=== PATIENT | female | born 1950 | race Caucasian/White ===

== ENCOUNTER → 2018-02-05 10:13 | Outpatient (CLI) | payer MEDICARE, OTHER, SELFPAY ==
--- NOTE | 2018-02-05 | DI.MG.S_ITS ---
BILATERAL DIGITAL SCREENING MAMMOGRAM 3D/2D WITH CAD: 02/05/2018 CLINICAL: Routine screening. Comparison is made to exams dated: 12/02/2013 mammogram - [facility], 01/09/2017 mammogram - [facility], and 04/14/2013 mammogram - [facility]. The tissue of both breasts is heterogeneously dense. This may lower the sensitivity of mammography. Current study was also evaluated with a Computer Aided Detection (CAD) system. No significant masses, calcifications, or other findings are seen in either breast. There has been no significant interval change. IMPRESSION: NEGATIVE There is no mammographic evidence of malignancy. A 1 year screening mammogram is recommended. This exam was interpreted at Station ID: [id number]. NOTE: For mammograms, a report in lay terms will be sent to the patient. Approximately 15% of breast malignancies will not be visualized mammographically. In the management of a palpable breast mass, a negative mammogram must not discourage biopsy of a clinically suspicious lesion. Electronically Signed By: Bimal jha/mago:02/05/2018 20:08:52 letter sent: Normal Exam ACR BI-RADS Category 1: Negative 3341F
== END ==
PROVIDERS: Family Provider Internal Medicine; PCP Internal Medicine; Visit Provider Internal Medicine
DX: Z12.31 Encounter for screening mammogram for malignant neoplasm of breast (principal)
CPT/HCPCS: 77063; 77067

== ENCOUNTER → 2018-04-08 10:36 | Outpatient (CLI) | payer MEDICARE, OTHER, SELFPAY ==
--- NOTE | 2018-04-08 | DI.ECHO.S_ITS ---
[facility] +---------+ [facility] +---------+ : : [address] : [address] : : : : [id number] : : : : Phone: [phone] +---------+ Echocardiogram Report + + :Name: MELVINA AMBROSE Study Date: 04/08/2018 Height: 67 in : :[facility] Weight: 123 lb : : Gender: Female BSA: 1.6 m2 : :: 1950 Age: 67 yrs BP: 114/78 mmHg: :Reason For Study: Mitral Valve- Prolapse : :Ordering Physician: Philip : :Jody Performed By: Brisa Pratt : :Referring: Rojas Dewey : + + Interpretation Summary 1) Normal left ventricular size and thickness with low normal systolic function (EF 50-55%). 2) Grossly normal right ventricular size and function. 3) There is severe bileaflet mitral valve prolapse. 4) Probably moderate posteriorly directed mitral regurgitation present. The regurgitation jet doesn't appear to be holosystolic, making severe mitral regurgitation less likely. 5) There is mild to moderate tricuspid regurgitation. 6) The right ventricular systolic pressure is estimated to be at least 29 mmHg based on an estimated right atrial pressure of 3 mm Hg. 7) Compared to the Echo done 02/07/2017, no significant change. Procedure: A two-dimensional transthoracic echocardiogram with color flow and Doppler was performed. The study quality was technically adequate. Comparison is made with the echocardiogram of 02-07-17. The heart rate ranged between 87-106 bpm during the study. Left Ventricle: The left ventricle is normal in size. There is normal left ventricular wall thickness. The ejection fraction is estimated to be 50-55%. Right Ventricle: The right ventricle grossly appears normal in size with probable normal systolic function. Atria: The left atrium is severely dilated. Right atrial size is normal. The interatrial septum is intact with no evidence for an atrial septal defect. Mitral Valve: There is prolapse of the anterior mitral valve leaflet. There is prolapse of the posterior mitral valve leaflet(s). There is severe mitral valve prolapse. There is moderate mitral regurgitation. Aortic Valve: The aortic valve is trileaflet. The aortic valve opens well. There is trace aortic regurgitation. Tricuspid Valve: The tricuspid valve leaflets are thin and pliable. There is mild to moderate tricuspid regurgitation. The right ventricular systolic pressure is estimated to be at least 29 mmHg based on an estimated right atrial pressure of 3 mm Hg. Pulmonic Valve: The pulmonic valve is normal in structure and function. There is trace pulmonic regurgitation. Great Vessels: The aortic root is normal size. The dimensions of the ascending aorta are normal. The IVC is of normal diameter and collapses greater than 50% with a sniff. This suggests a low right atrial pressure of 3 mm Hg. Pericardium/ Pleura There is no pericardial effusion. There is no pleural effusion. MMode/2D Measurements & Calculations LVIDd: 4.5 cm Ao root diam: 3.2 cm LVIDs: 3.6 cm Aortic Jxn: 2.5 cm FS: 20.4 % asc Aorta Diam: 2.7 cm EPSS: 0.30 cm Ao Arch Diam (Prox Trans): 2.6 cm IVSd: 0.85 cm LVPWd: 0.72 cm LV grullon. diameter/BSA (cm/m^2): 2.7 LV sys. diameter/BSA (cm/m^2): 2.2 LA dimension: 3.5 cm RA long axis: 4.8 cm LA A2 area: 23.6 cm2 RA area: 17.7 cm2 LA A4 area: 22.3 cm2 RA vol: 55.7 ml LA length (vol): 5.3 cm RA : 33.8 ml/m2 LA vol: 84.3 ml IVC diam: 1.7 cm LA vol index: 51.2 ml/m2 RVDd major: 5.5 cm RVD1 (basal): 2.9 cm RVD2 (mid): 2.4 cm Doppler Measurements & Calculations LVOT Max Jair: 84.7 cm/sec MV E max jair: 119.8 cm/sec LV V1 max P.9 mmHg MV A max jair: 50.2 cm/sec LV V1 VTI: 17.0 cm MV E/A: 2.4 Med Peak E' Jair: 8.3 cm/sec E/E' med: 14.4 Lat Peak E' Jair: 8.2 cm/sec E/E' lat: 14.6 E/e' average: 14.5 MV dec time: 0.18 sec MV P1/2t: 54.9 msec TR max jair: 256.2 cm/sec MV P1/2t max jair: 119.1 cm/sec TR max P.2 mmHg MVA(P1/2t): 4.0 cm2 PA V2 max: 55.1 cm/sec PA V2 mean: 29.4 cm/sec PA mean P.47 mmHg Reading Physician:01:44 PM
== END ==
PROVIDERS: PCP Internal Medicine; Visit Provider Internal Medicine Cardiovascular Disease
DX: I08.1 Rheumatic disorders of both mitral and tricuspid valves (principal)
CPT/HCPCS: 93306

== ENCOUNTER → 2019-04-15 13:29 | Outpatient (CLI) | payer MEDICARE, OTHER, SELFPAY ==
--- NOTE | 2019-04-15 | DI.ECHO.S_ITS ---
[place] +---------+ Hospital +---------+ : : [address] : [address] : : : : [id number] : : : : Phone: [phone] : : [phone] +---------+ Echocardiogram Report + + :Name: MELVINA AMBROSE Study Date: 04/15/2019 Height: 66 in : :[facility] Weight: 120 lb : : Gender: Female BSA: 1.6 m2 : :: 1950 Age: 68 yrs BP: 122/82 mmHg: :Reason For Study: MITRAL VALVE PROLAPSE : : Performed By: [facility] Staff : :Referring: JONATHAN ANDREWS : + + Interpretation Summary -There is significant bileaflet prolapse which is more prominent in the posterior leaflet. 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 -Mild to moderate midsystolic mitral regurgitation. -LVESD 3.2 cm. -Left ventricular ejection fraction is estimated to be 65% by biplane MOD. -The right ventricle is normal in size and function. -The right ventricular systolic pressure is estimated to be at least 29 mmHg based on an estimated right atrial pressure of 3 mm Hg. -A PFO is suspected on some views. -The left atrium is moderately dilated. -Overall this findings are similar to the prior echo. The LV systolic function appears slightly more vigorous. Procedure: A two-dimensional transthoracic echocardiogram with color flow and Doppler was performed. The study quality was technically adequate. Prior echo performed on 04/08/18. The patient was in normal sinus rhythm during the exam. Left Ventricle: The left ventricle is normal in size. There is normal left ventricular wall thickness. The ejection fraction is estimated to be 60-65%. Left ventricular ejection fraction is estimated to be 65% by biplane MOD. The left ventricular ejection fraction is normal. Left ventricular wall motion is normal. Diastolic function could not be accurately assessed due to atrial fibrillation. Right Ventricle: The right ventricle is normal in size and function. TAPSE 2 cm. Atria: The left atrium is moderately dilated. The right atrium is borderline dilated. Mitral Valve: There is prolapse of the anterior mitral valve leaflet. There is moderate mitral regurgitation. The mitral regurgitant jet is posteriorly directed, which is consistent with anterior leaflet pathology. Aortic Valve: The aortic valve is trileaflet. The aortic valve opens well. No aortic regurgitation is present. Tricuspid Valve: The tricuspid valve is not well visualized, but is grossly normal. There is mild tricuspid regurgitation. The right ventricular systolic pressure is estimated to be at least 29 mmHg based on an estimated right atrial pressure of 3 mm Hg. Pulmonic Valve: The pulmonic valve is normal in structure and function. There is trace pulmonic regurgitation. Great Vessels: The aortic root is normal size. The dimensions of the ascending aorta are normal. The pulmonary artery is normal size. The IVC is of normal diameter and collapses greater than 50% with a sniff. This suggests a low right atrial pressure of 3 mm Hg. Pericardium/ Pleura There is no pericardial effusion. There is no pleural effusion. MMode/2D Measurements & Calculations LVIDd: 4.5 cm LVOT diam: 2.2 cm LVIDs: 3.0 cm Ao root diam: 2.9 cm FS: 33.8 % Aortic Jxn: 2.5 cm EPSS: 0.51 cm IVSd: 0.83 cm LVPWd: 1.2 cm LV grullon. diameter/BSA (cm/m^2): 2.8 LV sys. diameter/BSA (cm/m^2): 1.9 LA A2 area: 18.8 cm2 RA long axis: 4.9 cm LA A4 area: 19.7 cm2 RA area: 16.9 cm2 LA length (vol): 4.3 cm RA vol: 50.0 ml LA vol: 72.5 ml RA : 31.0 ml/m2 LA vol index: 45.0 ml/m2 TAPSE: 1.8 cm LV EDA_phl: 19.0 cm2 Doppler Measurements & Calculations Ao V2 max: 97.4 cm/sec LVOT Max Jair: 61.3 cm/sec Ao V2 mean: 62.4 cm/sec LV V1 max P.5 mmHg Ao max P.8 mmHg LV V1 VTI: 11.8 cm Ao mean P.8 mmHg NICK(I,D): 2.4 cm2 Ao V2 VTI: 18.7 cm NICK(V,D): 2.3 cm2 sev ratio: 0.63 NICK indexed to BSA (cm^2/m^2): 1.5 MV E max jair: 0.23 cm/sec TR max jair: 245.7 cm/sec TR max P.8 mmHg PA V2 max: 47.2 cm/sec PA V2 mean: 35.0 cm/sec PA mean P.53 mmHg PA Accel Time: 0.12 sec SV(LVOT): 44.0 ml Electronically signed by: Jonathan Andrews M.D. on Reading Physician:04/15/2019 09:49 PM
== END ==
PROVIDERS: PCP Internal Medicine; Visit Provider Hospitalist
DX: I08.1 Rheumatic disorders of both mitral and tricuspid valves (principal)
CPT/HCPCS: 93306

== ENCOUNTER → 2020-05-19 07:55 | Outpatient (CLI) | payer MEDICARE, OTHER, SELFPAY ==
--- NOTE | 2020-05-19 08:03 | DI.ECHO.S_ITS ---
[facility] +---------+ Hospital +---------+ : : [address] : : : : [id number] : : : : Phone: [phone] : [phone] +---------+ Echocardiogram Report + + :Name: MELVINA AMBROSE Study Date: 05/19/2020 Height: 66 in : [id number] : : Gender: Female BSA: 1.6 m2 : :: 1950 Age: 69 yrs BP: 107/74 mmHg: :Reason For Study: Mitral valve insufficiency : : Performed By: Rosalee Childress : :Referring: JONATHAN ANDREWS : + + Interpretation Summary The left ventricle is normal in size and wall thickness.LVIDd: 5.1 cm LVIDs: 3.4 cm The ejection fraction is estimated to be 55-60%. No significant change in LVEF from the previous study. The right ventricle is normal in size and function. The mitral valve leaflets appear myxomatous. There is prolapse of the anterior mitral valve leaflet. There is prolapse of the posterior mitral valve leaflet(s). There is moderate mitral regurgitation. There is an eccentric jet of mitral regurgitation that is directed posteriorly. Compared to the prior echo study, there has been no change in the severity of mitral regurgitation. There is mild to moderate tricuspid regurgitation. Compared to the prior echo exam, there has been no change in TR severity. The right ventricular systolic pressure is estimated to be at least 31 mmHg based on an estimated right atrial pressure of 3 mm Hg. The left atrium is severely dilated. The left atrium has mildly increased in size since the prior echo exam. Rhythm appears to be atrial flutter/A. fib with controlled ventricular rate (New). Procedure: A two-dimensional transthoracic echocardiogram with color flow and Doppler was performed. The study quality was technically adequate. Comparison is made with the echocardiogram of 04/15/2019. Rhythm appears to be atrial flutter/A. fib with controlled ventricular rate. Left Ventricle: The left ventricle is normal in size and wall thickness. There is no thrombus. The ejection fraction is estimated to be 55-60%. Septal motion is consistent with conduction abnormality. E/E' med: 13.0. Right Ventricle: The right ventricle is normal in size and function. Atria: The left atrium is severely dilated. The left atrium has mildly increased in size since the prior echo exam. The right atrium is moderately dilated. There is no Doppler evidence for an interatrial shunt. Mitral Valve: The mitral valve leaflets appear myxomatous. There is moderate mitral valve prolapse. There is prolapse of the anterior mitral valve leaflet. There is prolapse of the posterior mitral valve leaflet(s). There is moderate mitral regurgitation. There is an eccentric jet of mitral regurgitation that is directed posteriorly. Compared to the prior echo study, there has been no change in the severity of mitral regurgitation. Aortic Valve: The aortic valve is trileaflet. The aortic valve opens well. There is no aortic valve stenosis. There is trace aortic regurgitation. Tricuspid Valve: The tricuspid valve is normal in structure and function. There is mild to moderate tricuspid regurgitation. The right ventricular systolic pressure is estimated to be at least 31 mmHg based on an estimated right atrial pressure of 3 mm Hg. Compared to the prior echo exam, there has been no change in TR severity. Pulmonic Valve: The pulmonic valve leaflets are thin and pliable; valve motion is normal. There is trace pulmonic regurgitation. Great Vessels: The aortic root is normal size. The ascending aorta is normal in size. The pulmonary artery is normal size. The IVC is of normal diameter and collapses greater than 50% with a sniff. This suggests a low right atrial pressure of 3 mm Hg. Pericardium/ Pleura There is no pericardial effusion. There is an anterior echo-free space consistent with a fat pad. MMode/2D Measurements & Calculations LVIDd: 5.1 cm LVOT diam: 2.3 cm LVIDs: 3.4 cm Ao root diam: 3.3 cm FS: 34.1 % asc Aorta Diam: 2.6 cm IVSd: 0.55 cm Ao Arch Diam (Prox Trans): 2.4 cm LVPWd: 0.43 cm LV grullon. diameter/BSA (cm/m^2): 3.1 LV sys. diameter/BSA (cm/m^2): 2.1 LA A2 area: 27.3 cm2 RA long axis: 6.1 cm LA A4 area: 28.3 cm2 RA area: 22.2 cm2 LA length (vol): 6.0 cm RA vol: 68.5 ml LA vol: 109.8 ml RA : 42.0 ml/m2 LA vol index: 67.4 ml/m2 IVC diam: 1.2 cm RVD1 (basal): 2.8 cm TAPSE: 1.9 cm Doppler Measurements & Calculations Ao V2 max: 97.8 cm/sec LVOT Max Jair: 60.7 cm/sec Ao V2 mean: 65.9 cm/sec LV V1 max P.5 mmHg Ao max P.8 mmHg LV V1 VTI: 10.5 cm Ao mean P.9 mmHg NICK(I,D): 2.5 cm2 Ao V2 VTI: 17.2 cm NICK(V,D): 2.5 cm2 sev ratio: 0.61 NICK indexed to BSA (cm^2/m^2): 1.5 MV E max jair: 128.8 cm/sec TR max jair: 266.0 cm/sec MV A max jair: 56.3 cm/sec TR max P.3 mmHg MV E/A: 2.3 PA V2 max: 50.0 cm/sec Med Peak E' Jair: 9.9 cm/sec PA V2 mean: 38.5 cm/sec E/E' med: 13.0 PA mean P.64 mmHg Lat Peak E' Jair: 10.2 cm/sec PA Accel Time: 0.12 sec E/E' lat: 12.6 E/e' average: 12.8 MV P1/2t: 58.8 msec MVA(VTI): 1.4 cm2 MV V2 mean: 84.6 cm/sec MV P1/2t max jair: 128.8 cm/sec MV mean P.8 mmHg MVA(P1/2t): 3.7 cm2 MV V2 VTI: 30.5 cm SV(LVOT): 42.2 ml Reading Physician:02:30 PM
== END ==
PROVIDERS: PCP Internal Medicine; Referring Provider Hospitalist; Visit Provider Hospitalist
DX: I08.1 Rheumatic disorders of both mitral and tricuspid valves (principal)
CPT/HCPCS: 93306

== ENCOUNTER → 2020-08-23 09:28 | Outpatient (CLI) | payer MEDICARE, OTHER, SELFPAY ==
--- NOTE | 2020-08-23 10:27 | DI.CT.S_ITS ---
PROCEDURE: CT ABDOMEN PELVIS W CON INDICATIONS: Lower abdominal pain, unspecified TECHNIQUE: After the administration of oral and intravenous contrast, 5 mm thick sections acquired from the diaphragms to the symphysis. 5 mm thick coronal and sagittal reformats were performed. For radiation dose reduction, the following was used: automated exposure control, adjustment of mA and/or kV according to patient size. COMPARISON: None. FINDINGS: Image quality: Excellent. ABDOMEN: Lung bases: Lung bases are clear. Heart size is normal. Solid organs: Liver is normal in size and enhancement. Gallbladder appears present, partially contracted.. Biliary system is non-dilated. Pancreas enhances normally. Spleen is normal in size and enhancement. No adrenal nodules. Kidneys are normal in size and enhancement, without hydronephrosis. Peritoneum and bowel: Stomach, small bowel, and colon loops are normal in caliber and wall thickness. No free fluid or air. Nodes and vessels: No retroperitoneal or mesenteric adenopathy. Aorta and inferior vena cava are normal in caliber. Miscellaneous: No ventral hernias. PELVIS: Genitourinary: Bladder wall thickness is normal. Miscellaneous: No inguinal hernias or adenopathy. Note is made of extensive diverticulosis involving the sigmoid colon, and also a mild degree of edema in the pericolonic fat of the sigmoid mesocolon at the middle 3rd of the sigmoid coarse, consistent with mild acute diverticulitis, without peridiverticular abscess. Bones: No suspicious bony lesions. No vertebral body compression fractures. IMPRESSION: Mild acute diverticulitis at the sigmoid colon without peridiverticular abscess. Additional extensive sigmoid diverticulosis elsewhere. Throughout the abdomen and pelvis more superiorly no acute disease is found. Dictated by: Simon Almanza M.D. on 08/23/2020 at 11:35 Approved by: Simon Almanza M.D. on 08/23/2020 at 11:37
== END ==
PROVIDERS: PCP Internal Medicine; Referring Provider Internal Medicine; Visit Provider Internal Medicine
DX: K57.32 Diverticulitis of large intestine without perforation or abscess without bleeding (principal); I48.91 Unspecified atrial fibrillation; R00.0 Tachycardia, unspecified
CPT/HCPCS: 74177; Q9967

== ENCOUNTER → 2020-09-29 15:06 | Outpatient (CLI) | payer MEDICARE, OTHER, SELFPAY ==
--- NOTE | 2020-09-29 15:08 | DI.MG.S_ITS ---
BILATERAL DIGITAL SCREENING MAMMOGRAM 3D/2D WITH CAD: 09/29/2020 CLINICAL: Routine screening. Comparison is made to exams dated: 02/05/2018 mammogram, 01/09/2017 mammogram - [facility], and 12/02/2013 mammogram - [facility]. The tissue of both breasts is heterogeneously dense. This may lower the sensitivity of mammography. Current study was also evaluated with a Computer Aided Detection (CAD) system. No significant masses, calcifications, or other findings are seen in either breast. There has been no significant interval change. IMPRESSION: NEGATIVE There is no mammographic evidence of malignancy. A 1 year screening mammogram is recommended. This exam was interpreted at Station ID: [id number]. NOTE: For mammograms, a report in lay terms will be sent to the patient. Approximately 15% of breast malignancies will not be visualized mammographically. In the management of a palpable breast mass, a negative mammogram must not discourage biopsy of a clinically suspicious lesion. Electronically Signed By: Morteza Stauffer M.D., jr/mago:09/29/2020 16:34:16 letter sent: Normal Exam ACR BI-RADS Category 1: Negative 3341F
== END ==
PROVIDERS: PCP Internal Medicine; Referring Provider Internal Medicine; Visit Provider Internal Medicine
DX: Z12.31 Encounter for screening mammogram for malignant neoplasm of breast (principal)
CPT/HCPCS: 77063; 77067

== ENCOUNTER → 2021-07-19 13:41 | Outpatient (CLI) | payer MEDICARE, OTHER, SELFPAY ==
--- NOTE | 2021-07-19 | DI.ECHO.S_ITS ---
[place] +---------+ Hospital +---------+ : : [address] : : : : [phone] : : : : Phone: [phone] : : [phone] +---------+ Echocardiogram Report + + :Name: MELVINA AMBROSE Study Date: 07/19/2021 Height: 66 in : :[facility] ReadingLocation: Weight: 120 lb : : Gender: Female BSA: 1.6 m2 : :: 1950 Age: 70 yrs BP: 130/88 mmHg: :Reason For Study: MITRAL INSUFFICIENCY : :Ordering Physician: JEREMIAH, : :VALERY Performed By: Bushra Villagomez : :Referring: VALERY DANIELS : + + Interpretation Summary The left ventricle is normal in size.LVIDd: 4.5 cm LVIDs: 2.9 cm The ejection fraction is estimated to be 55-60%. There has been no significant change in LVEF since the previous exam. The right ventricle is normal in size and function. The mitral valve leaflets appear myxomatous. There is prolapse of the anterior mitral valve leaflet. There is prolapse of the posterior mitral valve leaflet(s). There is moderate mitral regurgitation. The mitral regurgitant jet is eccentrically directed. The mitral regurgitant jet is anteriorly directed, which is consistent with posterior leaflet pathology. Compared to the prior echo study, there has been no change in the severity of mitral regurgitation. There is moderate tricuspid regurgitation. Previously mild to moderate TR. The right ventricular systolic pressure is estimated to be at least 30.4 mmHg based on an estimated right atrial pressure of 3 mm Hg. Procedure: A two-dimensional transthoracic echocardiogram with color flow and Doppler was performed. The study quality was technically adequate. Comparison is made with the echocardiogram of 05/19/2020. The patient was in atrial fibrillation with heart rates between 76-97 bpm during the exam. Left Ventricle: The left ventricle is normal in size. Left ventricular wall thickness is borderline increased. There is no thrombus. The ejection fraction is estimated to be 55-60%. There has been no significant change since the previous exam. There are no focal wall motion abnormalities. Diastolic function could not be accurately assessed due to atrial fibrillation. E/E' med: 12.9. Right Ventricle: The right ventricle is normal in size and function. Atria: The left atrium is severely dilated. The left atrium has remained unchanged in size since the prior echo exam. The right atrium is mildly dilated. There is no Doppler evidence for an interatrial shunt. The interatrial septum bows toward right atrium consistent with elevated left atrial pressure. Mitral Valve: The mitral valve leaflets appear myxomatous. There is prolapse of the anterior mitral valve leaflet. There is prolapse of the posterior mitral valve leaflet(s). There are multiple regurgitant jets present. The mitral regurgitant jet is eccentrically directed. There is moderate mitral regurgitation. The mitral regurgitant jet is anteriorly directed, which is consistent with posterior leaflet pathology. Compared to the prior echo study, there has been no change in the severity of mitral regurgitation. Aortic Valve: The aortic valve is trileaflet. The aortic valve opens well. There is no aortic valve stenosis. No aortic regurgitation is present. Tricuspid Valve: Tricuspid leaflets are thickened. There is moderate tricuspid regurgitation. Multiple regurgitant jets. The right ventricular systolic pressure is estimated to be at least 30.4 mmHg based on an estimated right atrial pressure of 3 mm Hg. Pulmonic Valve: The pulmonic valve is not well seen, but is grossly normal. There is mild pulmonic regurgitation. Great Vessels: The aortic root is normal size. The dimensions of the ascending aorta are normal. The IVC is of normal diameter and collapses greater than 50% with a sniff. This suggests a low right atrial pressure of 3 mm Hg. Pericardium/ Pleura There is no pericardial effusion. There is no pleural effusion. MMode/2D Measurements & Calculations LVIDd: 4.5 cm LVOT diam: 2.2 cm LVIDs: 2.9 cm Ao root diam: 3.0 cm FS: 36.0 % asc Aorta Diam: 2.5 cm IVSd: 0.64 cm Ao Arch Diam (Prox Trans): 2.2 cm LVPWd: 0.68 cm LV grullon. diameter/BSA (cm/m^2): 2.8 LV sys. diameter/BSA (cm/m^2): 1.8 LA A2 area: 29.0 cm2 RA long axis: 5.3 cm LA A4 area: 26.4 cm2 RA area: 14.9 cm2 LA length (vol): 5.9 cm RA vol: 35.1 ml LA vol: 110.9 ml RA : 21.8 ml/m2 LA vol index: 68.9 ml/m2 IVC diam: 1.7 cm RVD1 (basal): 3.0 cm RVD2 (mid): 2.8 cm TAPSE: 1.8 cm Doppler Measurements & Calculations Ao V2 max: 114.2 cm/sec LVOT Max Jair: 67.9 cm/sec Ao V2 mean: 76.0 cm/sec LV V1 max P.8 mmHg Ao max P.2 mmHg LV V1 VTI: 12.0 cm Ao mean P.7 mmHg NICK(I,D): 2.4 cm2 Ao V2 VTI: 19.4 cm NICK(V,D): 2.3 cm2 sev ratio: 0.62 NICK indexed to BSA (cm^2/m^2): 1.5 MV E max jair: 141.0 cm/sec TR max jair: 261.8 cm/sec MV A max jair: 2.9 cm/sec TR max P.4 mmHg MV E/A: 48.7 PA V2 max: 75.6 cm/sec Med Peak E' Jair: 11.0 cm/sec PA V2 mean: 50.8 cm/sec E/E' med: 12.9 PA mean P.2 mmHg Lat Peak E' Jair: 10.3 cm/sec PA pr(Accel): 27.6 mmHg E/E' lat: 13.7 E/e' average: 13.3 MV dec time: 0.20 sec SV(LVOT): 46.7 ml Reading Physician:05:08 PM
== END ==
PROVIDERS: PCP Internal Medicine; Referring Provider Internal Medicine Cardiovascular Disease; Visit Provider Internal Medicine Cardiovascular Disease
DX: I08.1 Rheumatic disorders of both mitral and tricuspid valves (principal)
CPT/HCPCS: 93306

== ENCOUNTER → 2021-10-24 11:13 | Outpatient (CLI) | payer MEDICARE, OTHER, SELFPAY ==
--- NOTE | 2021-10-24 | DI.MG.S_ITS ---
BILATERAL DIGITAL SCREENING MAMMOGRAM 3D/2D WITH CAD: 10/24/2021 CLINICAL: Routine screening. Comparison is made to exams dated: 09/29/2020 mammogram, 02/05/2018 mammogram, 01/09/2017 mammogram - [facility], and 12/02/2013 mammogram - [facility]. The tissue of both breasts is heterogeneously dense. This may lower the sensitivity of mammography. Current study was also evaluated with a Computer Aided Detection (CAD) system. No significant masses, calcifications, or other findings are seen in either breast. There has been no significant interval change. IMPRESSION: NEGATIVE There is no mammographic evidence of malignancy. A 1 year screening mammogram is recommended. This exam was interpreted at Station ID: [id number]. NOTE: For mammograms, a report in lay terms will be sent to the patient. Approximately 15% of breast malignancies will not be visualized mammographically. In the management of a palpable breast mass, a negative mammogram must not discourage biopsy of a clinically suspicious lesion. Electronically Signed By: Kentrell valdez/mago:10/24/2021 12:01:02 letter sent: Normal Exam ACR BI-RADS Category 1: Negative 3341F
== END ==
PROVIDERS: PCP Internal Medicine; Referring Provider Internal Medicine; Visit Provider Physician Assistant
DX: M85.89 Other specified disorders of bone density and structure, multiple sites (principal); Z12.31 Encounter for screening mammogram for malignant neoplasm of breast; Z78.0 Asymptomatic menopausal state; Z90.710 Acquired absence of both cervix and uterus
CPT/HCPCS: 77063; 77067; 77080

== ENCOUNTER → 2022-06-26 09:09 | Outpatient (CLI) | payer MEDICARE, OTHER, SELFPAY ==
--- NOTE | 2022-06-26 09:37 | DI.ECHO.S_ITS ---
Echocardiogram Report + + :Name: MELVINA AMBROSE :Reason For Study: MITRAL VALVE PROLAPSE : :Ordering Physician: HAM, : :JONATAN TORIBIO Performed By: Bushra Villagomez : :Referring: DONI WHITEHEAD : + + Interpretation Summary 1) Normal left ventricular size and thickness with low normal systolic function (EF 50-55%). 2) Normal right ventricular size and function. 3) Severely enlarged left atrium. 4) Bileaflet mitral valve prolapse present. 5) There is mid to late systolic moderate mitral regurgitation that is directed posteriorly. 6) There is mild to moderate tricuspid regurgitation. 7) The right ventricular systolic pressure is estimated to be at least 42 mmHg based on an estimated right atrial pressure of 8 mm Hg. 8) Compared to the Echo done 07/19/2021, LVEF has decreased slightly from 55- 60% to 50-55% and systolic pulmonary artery pressure has increased from 30mmHg to 42mmHg on this study. Procedure: A two-dimensional transthoracic echocardiogram with color flow and Doppler was performed. The study quality was technically good. Comparison is made with the echocardiogram of 07/19/2021. The patient was in atrial fibrillation with heart rates between 75-91 bpm during the exam. Left Ventricle: The left ventricle is normal in size and wall thickness. The ejection fraction is estimated to be 50-55%. There are no focal wall motion abnormalities. Diastolic function could not be accurately assessed due to atrial fibrillation. Right Ventricle: The right ventricle is normal in size and function. Atria: The left atrium is severely dilated. The right atrium is mildly dilated. There is no Doppler evidence for an interatrial shunt. The interatrial septum bows toward right atrium consistent with elevated left atrial pressure. Mitral Valve: The mitral leaflets appear thickened, hooded, and/or redundant, consistent with myxomatous degeneration. There is prolapse of the anterior mitral valve leaflet. There is prolapse of the posterior mitral valve leaflet(s). There is moderate mitral regurgitation. There are multiple regurgitant jets present. Aortic Valve: The aortic valve is trileaflet. The aortic valve opens well. There is no aortic valve stenosis. There is trace aortic regurgitation. Tricuspid Valve: Tricuspid leaflets are thickened. There is mild to moderate tricuspid regurgitation. Multiple jets. The right ventricular systolic pressure is estimated to be at least 42 mmHg based on an estimated right atrial pressure of 8 mm Hg. Pulmonic Valve: The pulmonic valve is not well seen, but is grossly normal. There is mild pulmonic regurgitation. Great Vessels: The aortic root is normal size. The dimensions of the ascending aorta are normal. The IVC is dilated (diameter is greater than 2.1 cm) yet it collapses greater than 50% with a sniff. This suggests a right atrial pressure of 8 mm Hg. Pericardium/ Pleura There is no pericardial effusion. There is no pleural effusion. MMode/2D Measurements & Calculations LVIDd: 4.6 cm LVOT diam: 2.2 cm LVIDs: 3.4 cm Ao root diam: 3.0 cm FS: 26.4 % asc Aorta Diam: 2.7 cm IVSd: 0.70 cm Ao Arch Diam (Prox Trans): 2.5 cm LVPWd: 0.86 cm LV grullon. diameter/BSA (cm/m^2): 2.9 LV sys. diameter/BSA (cm/m^2): 2.1 LA A2 area: 32.1 cm2 RA long axis: 6.2 cm LA A4 area: 28.2 cm2 RA area: 20.6 cm2 LA length (vol): 6.0 cm RA vol: 58.1 ml LA vol: 128.6 ml RA : 36.8 ml/m2 LA vol index: 81.4 ml/m2 IVC diam: 2.1 cm RVD1 (basal): 3.4 cm RVD2 (mid): 2.8 cm TAPSE: 1.7 cm Doppler Measurements & Calculations Ao V2 max: 106.6 cm/sec LVOT Max Jiar: 58.9 cm/sec Ao V2 mean: 72.1 cm/sec LV V1 max P.4 mmHg Ao max P.6 mmHg LV V1 VTI: 11.5 cm Ao mean P.3 mmHg NICK(I,D): 2.2 cm2 Ao V2 VTI: 19.5 cm NICK(V,D): 2.0 cm2 sev ratio: 0.59 NICK indexed to BSA (cm^2/m^2): 1.4 MV E max jair: 133.3 cm/sec TR max jair: 290.7 cm/sec MV A max jair: 1.9 cm/sec TR max P.8 mmHg MV E/A: 70.1 PA V2 max: 67.3 cm/sec Med Peak E' Jair: 10.6 cm/sec PA V2 mean: 51.3 cm/sec E/E' med: 12.6 PA mean P.2 mmHg Lat Peak E' Jair: 11.9 cm/sec PA pr(Accel): 37.9 mmHg E/E' lat: 11.2 E/e' average: 11.9 MV dec time: 0.19 sec SV(LVOT): 42.1 ml Reading Physician:01:48 PM
== END ==
PROVIDERS: PCP Internal Medicine; Referring Provider Nurse Practitioner Family; Visit Provider Nurse Practitioner Family
DX: I08.1 Rheumatic disorders of both mitral and tricuspid valves (principal)
CPT/HCPCS: 93306

== ENCOUNTER → 2024-08-13 10:50 | Outpatient (CLI) | payer MEDICARE, OTHER, SELFPAY ==
--- NOTE | 2024-08-13 10:51 | DI.RAD.S_ITS ---
PROCEDURE: XR DEXA AXIAL SKELETON INDICATIONS: OSTEOPENIA COMPARISON: [facility], CR, XR DEXA AXIAL SKELETON, 10/24/2021, 11:51. FINDINGS: Lumbar Spine: Bone mineral density 0.812 g/cm2, T score -2.1. There is interval 5.6% decrease in total lumbar spine bone mineral density. Left Femoral Neck: Bone mineral density 0.616 g/cm2, T score -2.1. There is interval 4.8% decrease in left femoral neck bone mineral density. Left Hip: Bone mineral density 0.684 g/cm2, T score -2.1. There is interval 3% decrease in left total hip bone mineral density. Fracture Risk Calculation (when applicable): 10-year fracture risk of a major osteoporotic fracture 11 percent and of a hip fracture 3.0 percent. (T score greater or equal to -1.0 to: NORMAL) (T score from -1.1 to -2.4: OSTEOPENIA) (T score less than or equal to -2.5: OSTEOPOROSIS) IMPRESSION: Osteopenia with increased 10 year fracture risk. Follow-up guidelines as follows: Osteoporosis: Consider a repeat DEXA and Vertebral Fracture Assessment (VFA) exam in 2 years or sooner if medically necessary, to reassess this patient's status. Osteopenia: Consider a repeat DEXA in 2-3 years to reassess this patient's status, or if there is a new clinical indication. Normal: Consider a repeat DEXA in 5 years or sooner, or if there is a new clinical indication. All treatment decisions require clinical judgment and consideration of individual patient factors, including patient preferences, comorbidities, previous drug use, risk factors not captured in the FRAX model (e.g., frailty, falls, vitamin D deficiency, increased bone turnover, interval significant decline in bone density ) and possible under- or over-estimation of fracture risk by FRAX. In addition, the NOF Guide recommends that FDA-approved medical therapies be considered in postmenopausal women and men age >= 50 years with a: * Hip or vertebral (clinical or morphometric) fracture * T-score of <=-2.5 at the spine or hip * Ten-year fracture probability by FRAX of >= 3% for hip fracture or >=20% for major osteoporotic fracture. Dictated by: John Fraser M.D. on 08/13/2024 at 15:47 Approved by: John Fraser M.D. on 08/13/2024 at 15:48
--- NOTE | 2024-08-13 10:51 | DI.MG.S_ITS ---
MM screening mammo BI: 08/13/2024. BI-RADS: 0 CLINICAL: 73-year old female for bilateral screening mammogram. Tyrer-Cuzick lifetime risk of 1.7%. No personal or first-degree family history of breast cancer. PRIOR EXAMS 10/24/2021, 09/29/2020, 02/05/2018, 01/09/2017. MAMMOGRAPHY TECHNIQUE: 2D and 3D (tomosynthesis) digital mammographic views obtained, with additional images as needed for full coverage. Current study was also evaluated with a Computer Aided Detection (CAD) system. DENSITY C. The breasts are heterogeneously dense, which may obscure small masses. MAMMOGRAPHY FINDINGS Right: MLO only, Upper, Posterior depth, measuring 0.2 cm: Asymmetry needing additional imaging evaluation. This was present on prior mammograms dating back to 2021 but is more prominent compared to 2020 and 2017. Left: No suspicious mass, asymmetry, microcalcification, or other abnormality seen. IMPRESSION: Right (Asymmetry): MLO only, Upper, Posterior depth, measuring 0.2 cm * Incomplete - asymmetry needing additional imaging evaluation. Left * No evidence of malignancy. RECOMMENDATIONS Right: MLO only, Upper, Posterior depth * Further evaluation with diagnostic mammography and diagnostic ultrasound. OVERALL ASSESSMENT CATEGORY BI-RADS-0: Incomplete - Need Additional Imaging Evaluation. ELECTRONICALLY SIGNED: Tiffani Dickey M.D. on 08/13/2024 at 02:17:58 PM PT Interpreting Station ID: [id number]
== END ==
PROVIDERS: PCP Internal Medicine
DX: Z12.31 Encounter for screening mammogram for malignant neoplasm of breast (principal); R92.8 Other abnormal and inconclusive findings on diagnostic imaging of breast; R92.333 Mammographic heterogeneous density, bilateral breasts; M85.89 Other specified disorders of bone density and structure, multiple sites
CPT/HCPCS: 77063; 77067; 77080

== ENCOUNTER → 2024-09-27 09:49 | Outpatient (CLI) | payer MEDICARE, OTHER, SELFPAY ==
--- NOTE | 2024-09-27 09:51 | DI.US.S_ITS ---
MM diagnostic mammo unilat RT, US breast RT limited: 09/27/2024 BI-RADS: 3 CLINICAL: 73-year old female for right diagnostic mammogram and right diagnostic breast ultrasound that is a recall from screening on 08/13/2024. Tyrer-Cuzick lifetime risk of 1.7%. No personal or first-degree family history of breast cancer. PRIOR EXAMS Mammogram(s): 08/13/2024. Four Other Exams on 10/24/2021, 09/29/2020, 02/05/2018, 01/09/2017. MAMMOGRAPHY TECHNIQUE: 2D and 3D (tomosynthesis) digital mammographic views obtained, with additional images as needed for full coverage. Current study was also evaluated with a Computer Aided Detection (CAD) system. ULTRASOUND TECHNIQUE TARGETED Right Breast Ultrasound: Real-time ultrasound exam was performed focused to area of clinical and/or imaging concern. DENSITY Right: C. The breasts are heterogeneously dense, which may obscure small masses. MAMMOGRAPHY FINDINGS Right: MLO only, Upper, Posterior depth, measuring 0.2 cm: Correlating with findings on screening mammogram there is an asymmetry present. ULTRASOUND FINDINGS Right: Upper Inner at 12:30. Previous report: MLO only, Upper: There is no sonographic correlate for the mammographic finding. IMPRESSION: Right: Upper Inner at 12:30. Previous report: MLO only, Upper * Probably Benign. RECOMMENDATIONS Right: Upper Inner at 12:30 * Six month followup with diagnostic mammography and diagnostic ultrasound. Ultrasound to be performed only if needed. COMMENTS: Findings and recommendations were conveyed to the patient during today's evaluation. OVERALL ASSESSMENT CATEGORY BI-RADS-3: Probably Benign. ELECTRONICALLY SIGNED: Mauro Bonilla M.D. on 09/27/2024 at 11:08:45 AM PT Interpreting Station ID: [id number]
== END ==
PROVIDERS: PCP Internal Medicine
DX: R92.2 Inconclusive mammogram (principal); R92.331 Mammographic heterogeneous density, right breast
CPT/HCPCS: 76642; 77065; G0279

== ENCOUNTER → 2024-12-20 09:01 | Outpatient (CLI) | payer MEDICARE, OTHER, SELFPAY ==
--- NOTE | 2024-12-20 09:04 | DI.ECHO.S_ITS ---
[facility] : : [address] : : [place] : : [id number] : : Phone: [phone] Echocardiogram Report + + :Name: MELVINA AMBROSE Study Date: 12/20/2024 Height: 66.5 in: :[facility] ReadingLocation: Weight: 115 lb : : Gender: Female BSA: 1.6 m2 : :: 1950 Age: 74 yrs BP: 109/76 mmHg: :Reason For Study: MITRAL VALVE PROLAPSE : :Ordering Physician: JOSE, : :SANGITA Solomon PA-C Performed By: Bushra Villagomez : :Referring: SANGITA GARCIA PA-C : + + Interpretation Summary The left ventricle is normal in size and wall thickness. The ejection fraction is estimated to be 40-45%. Previously 45 to 50%. The right ventricle is normal size. Visually RV function appears to be preserved. On color Doppler, there is a left to right inter atrial shunt. Patient recently had mitral valve clip procedure. Likely iatrogenic due to transseptal puncture. Qp/Qs 1.42. About 0.5 cm in diameter. A mitral valve clip is present. Both mitral leaflets still thickened with some prolapse. Patient recently had mitral valve clip procedure. The mitral valve mean gradient is 4.2 mmHg. Previously 5.9. There is mild to moderate mitral regurgitation. Previously moderate to severe range. After mitral valve clip, mild to moderate range. There is mild aortic regurgitation. Compared to the prior echo study, there has been no change in the severity of aortic regurgitation. There is mild to moderate tricuspid regurgitation. Previously moderate TR. The right ventricular systolic pressure is estimated to be at least 34 mmHg based on an estimated right atrial pressure of 3 mm Hg. Previously 40 mmHg. Procedure: A two-dimensional transthoracic echocardiogram with color flow and Doppler was performed. The study quality was technically adequate. Comparison is made with the echocardiogram of 11/08/2024. The patient was in atrial fibrillation with heart rates between 71-82 bpm during the exam. Left Ventricle: The left ventricle is normal in size and wall thickness. There is no thrombus. The ejection fraction is estimated to be 40-45%. There is septal wall hypokinesis. Diastolic function could not be accurately assessed due to confounding valvular disease. Right Ventricle: The right ventricle is normal size. Visually RV function appears to be preserved. Atria: The left atrium is severely dilated. There has been no significant change since the previous study. The right atrium is normal in size. On color Doppler, there is a left to right inter atrial shunt. Patient recently had mitral valve clip procedure. Likely iatrogenic due to transseptal puncture. Qp/Qs 1.42. About 0.5 cm in diameter. Doppler evidence suggests a left to right interatrial shunt. Mitral Valve: A mitral valve clip is present. Both mitral leaflets still thickened with some prolapse. Patient recently had mitral valve clip procedure. The mitral valve mean gradient is 4.2 mmHg. Previously 5.9. There is mild to moderate mitral regurgitation. Previously moderate to severe range. The mitral valve mean gradient is 4.2 mmHg. There are multiple regurgitant jets present. There is mild to moderate mitral regurgitation. The mitral regurgitant jet is eccentrically directed. Aortic Valve: The aortic valve is trileaflet. The aortic valve opens well. There is no aortic valve stenosis. There is mild aortic regurgitation. Compared to the prior echo study, there has been no change in the severity of aortic regurgitation. Tricuspid Valve: Tricuspid leaflets are thickened. There is mild to moderate tricuspid regurgitation. Multiple regurgitant jets. The right ventricular systolic pressure is estimated to be at least 34 mmHg based on an estimated right atrial pressure of 3 mm Hg. Pulmonic Valve: The pulmonic valve leaflets are thin and pliable; valve motion is normal. There is mild pulmonic regurgitation. Great Vessels: The aortic root is normal size. The dimensions of the ascending aorta are normal. The IVC is of normal diameter and collapses greater than 50% with a sniff. This suggests a low right atrial pressure of 3 mm Hg. Pericardium/ Pleura There is a trivial to small pericardial effusion noted. There has been no significant change since the previous study. There are no echocardiographic indications of cardiac tamponade. There is no pleural effusion. MMode/2D Measurements & Calculations LVIDd: 4.5 cm LVOT diam: 2.0 cm LVIDs: 3.7 cm Ao root diam: 3.1 cm FS: 17.8 % asc Aorta Diam: 2.5 cm EPSS: 0.68 cm Ao Arch Diam (Prox Trans): 2.7 cm IVSd: 0.69 cm LVPWd: 0.59 cm LV grullon. diameter/BSA (cm/m^2): 2.8 LV sys. diameter/BSA (cm/m^2): 2.3 LA A2 area: 39.0 cm2 RA long axis: 5.7 cm LA A4 area: 23.8 cm2 RA area: 16.9 cm2 LA length (vol): 6.0 cm RA vol: 42.4 ml LA vol: 131.0 ml RA : 26.6 ml/m2 LA vol index: 82.3 ml/m2 IVC diam: 2.0 cm RVD1 (basal): 3.2 cm RVD2 (mid): 2.7 cm Doppler Measurements & Calculations Ao V2 max: 96.1 cm/sec LVOT Max Jair: 59.9 cm/sec Ao V2 mean: 69.5 cm/sec LV V1 max P.4 mmHg Ao max P.7 mmHg LV V1 VTI: 11.4 cm Ao mean P.1 mmHg NICK(I,D): 1.9 cm2 Ao V2 VTI: 18.3 cm NICK(V,D): 1.9 cm2 sev ratio: 0.63 NICK indexed to BSA (cm^2/m^2): 1.2 MV E max jair: 139.4 cm/sec TR max jair: 279.4 cm/sec Med Peak E' Jair: 7.3 cm/sec TR max P.2 mmHg E/E' med: 19.0 PA V2 max: 78.3 cm/sec Lat Peak E' Jair: 7.8 cm/sec PA V2 mean: 54.0 cm/sec E/E' lat: 18.0 PA mean P.3 mmHg E/e' average: 18.5 PA pr(Accel): 49.9 mmHg MVA(VTI): 0.96 cm2 MV V2 mean: 92.7 cm/sec SV(LVOT): 35.6 ml MV mean P.2 mmHg MV V2 VTI: 37.2 cm Reading Physician:05:29 PM
== END ==
LOC: ECHO 09:03
PROVIDERS: PCP Internal Medicine; Referring Provider Physician Assistant; Visit Provider Physician Assistant
DX: I08.3 Combined rheumatic disorders of mitral, aortic and tricuspid valves (principal)
CPT/HCPCS: 93306

== ENCOUNTER → 2025-04-21 08:41 | Outpatient (CLI) | payer MEDICARE, OTHER, SELFPAY ==
--- NOTE | 2025-04-21 08:44 | DI.MG.S_ITS ---
MM diagnostic mammo unilat RT: 04/21/2025. BI-RADS: 3 CLINICAL: 74-year old female for right diagnostic mammogram that is a follow-up to diagnostic mammogram on 09/27/2024. Tyrer-Cuzick lifetime risk of 1.6%. No personal or first-degree family history of breast cancer. PRIOR EXAMS Mammogram(s): 09/27/2024, 08/13/2024, 10/24/2021, 09/29/2020. MAMMOGRAPHY TECHNIQUE: 2D and 3D (tomosynthesis) digital mammographic views obtained, with additional images as needed for full coverage. Current study was also evaluated with a Computer Aided Detection (CAD) system. DENSITY Right: C. The breast is heterogeneously dense, which may obscure small masses. MAMMOGRAPHY FINDINGS Right: MLO only, Upper, Posterior depth, measuring 0.3cm: Correlating with prior imaging concern, there is a stable asymmetry seen only on one view that is unchanged in size and appearance. No sonographic correlate was identified on the prior ultrasound. IMPRESSION: Right (Asymmetry): MLO only, Upper, Posterior depth, measuring 0.3cm * Probably Benign. RECOMMENDATIONS Right: MLO only, Upper, Posterior depth * Six month followup with diagnostic mammography. When the patient returns for short-term unilateral followup, a mammogram for the contralateral breast will also be due. COMMENTS: Findings and recommendations were conveyed to the patient during today's evaluation. OVERALL ASSESSMENT CATEGORY BI-RADS-3: Probably Benign. ELECTRONICALLY SIGNED: Tiffani Dickey M.D. on 04/21/2025 at 09:21:36 AM PT Interpreting Station ID: [id number]
== END ==
LOC: MAMMO 08:42
PROVIDERS: PCP Internal Medicine; Referring Provider Internal Medicine; Visit Provider Internal Medicine
DX: N63.12 Unspecified lump in the right breast, upper inner quadrant (principal); R92.331 Mammographic heterogeneous density, right breast
CPT/HCPCS: 77065; G0279